=== PATIENT | female | born 1985 | race Caucasian/White ===

== ENCOUNTER 2017-08-20 12:02 | Emergency (ER) | payer MEDICAID ==
[2017-08-20] MEDS ORDERED: Alum Hydrox/Mag Hydrox/Simeth 15 ML, Lidocaine 2% 15 ML PO ONE ×2 (13:58)
[2017-08-20] MEDS ORDERED: Sucralfate 1 GM Tab PO ONE (13:58)
--- NOTE | 2017-08-20 14:00 | EDM.PDOC ---
ED HPI GENERAL MEDICAL PROBLEM - General Chief Complaint: Gastrointestinal Problem Stated Complaint: BLOOD IN VOMIT Time Seen by Provider: 08/20/17 13:59 Source of Information: Reports: Patient History Limitations: Reports: No Limitations - History of Present Illness INITIAL COMMENTS - FREE TEXT/NARRATIVE: pt arrived she has been vomiting and she has marked burning in her stomach. She has been feeling somewhat paniky today because her las emesis has some blood streaked through it. Onset: Today Duration: Hour(s): Location: Reports: Abdomen, Other ( blood astreaked in the emesis) Associated Symptoms: Reports: Nausea/Vomiting Upper Abdomen Pain Score (Numeric/FACES): 6 - Related Data Allergies Allergy/AdvReac Type Severity Reaction Status Date / Time amoxicillin Allergy Hives Verified 08/20/17 13:57 Home Meds: Home Meds Control 1 tab PO DAILY 08/20/17 [History] Cyclobenzaprine [Flexeril] 1 tab PO ASDIRECTED 08/20/17 [History] FLUoxetine [PROzac] 1 tab PO DAILY 08/20/17 [History] Omeprazole [priLOSEC OTC] 1 tab PO DAILY 08/20/17 [History] busPIRone [Buspar] 1 tab PO TID 08/20/17 [History] ED ROS GENERAL - Review of Systems Review Of Systems: See Below Constitutional: Reports: No Symptoms HEENT: Reports: No Symptoms Respiratory: Reports: No Symptoms Cardiovascular: Reports: No Symptoms Endocrine: Reports: No Symptoms GI/Abdominal: Reports: Abdominal Pain, Nausea, Vomiting, Other ( burning in the epigastric area. ) : Reports: No Symptoms Skin: Reports: No Symptoms Neurological: Reports: No Symptoms ED EXAM, GI/ABD - Physical Exam Exam: See Below Text/Narrative:: Pt arrived with severe burning in the epigastric area. She is on omeprazole. She did note a small amount of blood in the emesis . She was given a GI cocktail and she improoved markedly. Exam Limited By: No Limitations General Appearance: Alert, Anxious, Mild Distress Ears: Normal TMs Nose: Normal Inspection Throat/Mouth: Normal Inspection Head: Atraumatic Neck: Normal Inspection Respiratory/Chest: No Respiratory Distress Cardiovascular: Regular Rate, Rhythm GI/Abdominal Exam: Soft, Non-Tender (Female) Exam: Deferred Rectal (Female) Exam: Deferred Back Exam: Normal Inspection Extremities: Normal Inspection Neurological: Alert, Oriented, Normal Cognition Psychiatric: Anxious Course - Vital Signs Last Recorded V/S: Last Vital Signs Temp 36.6 C 08/20/17 13:55 Pulse 99 08/20/17 13:55 Resp 18 08/20/17 13:55 BP 114/73 08/20/17 13:55 Pulse Ox 99 08/20/17 13:55 - Orders/Labs/Meds Labs: Laboratory Tests 08/20/17 08/20/17 08/20/17 Range/Units 14:07 14:07 14:10 WBC 6.5 (4.5-11.0) K/uL RBC 4.14 (3.30-5.50) M/uL Hgb 12.4 (12.0-15.0) g/dL Hct 37.4 (36.0-48.0) % MCV 90 (80-98) fL MCH 30 (27-31) pg MCHC 33 (32-36) % Plt Count 258 (150-400) K/uL Neut % (Auto) 65 (36-66) % Lymph % (Auto) 28 (24-44) % Merrick % (Auto) 6 (2-6) % Eos % (Auto) 2 (2-4) % Baso % (Auto) 1 (0-1) % Sodium 139 L (140-148) mmol/L Potassium 3.8 (3.6-5.2) mmol/L Chloride 105 (100-108) mmol/L Carbon Dioxide 26 (21-32) mmol/L Anion Gap 11.8 (5.0-14.0) mmol/L BUN 8 (7-18) mg/dL Creatinine 0.8 (0.6-1.0) mg/dL Est Cr Clr Drug Dosing 102.78 mL/min Estimated GFR (MDRD) > 60 (>60) Glucose 105 (74-106) mg/dL Calcium 8.8 (8.5-10.1) mg/dL Total Bilirubin 0.2 (0.2-1.0) mg/dL AST 17 (15-37) U/L ALT 23 (12-78) U/L Alkaline Phosphatase 34 L (46-116) U/L Total Protein 6.1 L (6.4-8.2) g/dL Albumin 3.2 L (3.4-5.0) g/dL Globulin 2.9 (2.3-3.5) g/dL Albumin/Globulin Ratio 1.1 L (1.2-2.2) Lipase 110 (73-393) U/L Urine Color Urine Appearance Urine pH (4.5-8.0) Ur Specific [place] (1.008-1.030) Urine Protein (NEGATIVE) mg/dL Urine Glucose (UA) (NEGATIVE) mg/dL Urine Ketones (NEGATIVE) mg/dL Urine Occult Blood (NEGATIVE) Urine Nitrite (NEGATIVE) Urine Bilirubin (NEGATIVE) Urine Urobilinogen (NORMAL) mg/dL Ur Leukocyte Esterase (NEGATIVE) Urine RBC (0-5) Urine WBC (0-5) Ur Epithelial Cells Amorphous Sediment Urine Bacteria Urine Mucus Urine HCG, Qual 08/20/17 08/20/17 Range/Units 14:39 14:41 WBC (4.5-11.0) K/uL RBC (3.30-5.50) M/uL Hgb (12.0-15.0) g/dL Hct (36.0-48.0) % MCV (80-98) fL MCH (27-31) pg MCHC (32-36) % Plt Count (150-400) K/uL Neut % (Auto) (36-66) % Lymph % (Auto) (24-44) % Merrick % (Auto) (2-6) % Eos % (Auto) (2-4) % Baso % (Auto) (0-1) % Sodium (140-148) mmol/L Potassium (3.6-5.2) mmol/L Chloride (100-108) mmol/L Carbon Dioxide (21-32) mmol/L Anion Gap (5.0-14.0) mmol/L BUN (7-18) mg/dL Creatinine (0.6-1.0) mg/dL Est Cr Clr Drug Dosing mL/min Estimated GFR (MDRD) (>60) Glucose (74-106) mg/dL Calcium (8.5-10.1) mg/dL Total Bilirubin (0.2-1.0) mg/dL AST (15-37) U/L ALT (12-78) U/L Alkaline Phosphatase (46-116) U/L Total Protein (6.4-8.2) g/dL Albumin (3.4-5.0) g/dL Globulin (2.3-3.5) g/dL Albumin/Globulin Ratio (1.2-2.2) Lipase (73-393) U/L Urine Color Yellow Urine Appearance Cloudy Urine pH 7.0 (4.5-8.0) Ur Specific [place] 1.010 (1.008-1.030) Urine Protein Negative (NEGATIVE) mg/dL Urine Glucose (UA) Normal (NEGATIVE) mg/dL Urine Ketones Negative (NEGATIVE) mg/dL Urine Occult Blood Negative (NEGATIVE) Urine Nitrite Negative (NEGATIVE) Urine Bilirubin Negative (NEGATIVE) Urine Urobilinogen Normal (NORMAL) mg/dL Ur Leukocyte Esterase Negative (NEGATIVE) Urine RBC 0-5 (0-5) Urine WBC 0-5 (0-5) Ur Epithelial Cells Many Amorphous Sediment Not seen Urine Bacteria Many Urine Mucus Not seen Urine HCG, Qual Negative Meds: Medications Discontinued Medications Generic Name Dose Route Start Last Admin Trade Name Freq PRN Reason Stop Dose Admin Al Hydroxide/Mg Hydroxide 15 0 ml 08/20/17 13:58 08/20/17 14:11 ml/ Lidocaine HCl 15 ml PO 08/20/17 13:59 30 ml ONETIME ONE Administration Sucralfate 1 gm 08/20/17 13:58 08/20/17 14:11 Carafate PO 08/20/17 13:59 1 gm ONETIME ONE Administration - Re-Assessments/Exams Free Text/Narrative Re-Assessment/Exam: 08/20/17 15:51 pt was given carafate 1 gm and a gi cocktail and had good relief. She was advised that she needed to be gastroscoped. Departure - Departure Time of Disposition: 15:29 Disposition: Home, Self-Care 01 Condition: Fair Clinical Impression: Gastrointestinal irritation - Discharge Information Instructions: Gastroesophageal Reflux Disease, Adult Referrals: Latrice Nelson PA [Primary Care Provider] - Forms: ED Department Discharge Care Plan Goals: cont omeprazole, carafate 1 gm tid, rtc for a gastro ,appt with usual dr. -- vangie nelson
== END 2017-08-20 15:45 | disposition home or self-care (01) ==
LOC: JP.ED 12:02
DX: K92.89 Other specified diseases of the digestive system (principal); Z88.1 Allergy status to other antibiotic agents; Z79.899 Other long term (current) drug therapy
CPT/HCPCS: 36415; 80053; 81001; 81025; 83690; 85025; 99284; A9270-GY

== ENCOUNTER 2017-08-26 07:50 | Day surgery (SDC) | payer MEDICAID ==
[~2017-08-26 07:50] MED LIST: Midazolam 1 MG/ML 2 ML SDV ONE; Propofol 200 MG/20 ML SDV ONE; fentaNYL 100 MCG/2 ML SDV ONE
[2017-08-26] MEDS ORDERED: Dextrose 5%-Lactated Ringers 1,000 ML IV SCH (09:00)
[2017-08-26] MEDS ORDERED: Propofol 200 MG/20 ML SDV ONE (09:28)
[2017-08-26] MEDS ORDERED: Glycopyrrolate 0.2 MG/ML 2 ML SYRINGE IVPUSH ONE (09:30)
[2017-08-26] MEDS ORDERED: Pantoprazole 40 MG Vial IVPUSH ONE (09:43)
--- NOTE | 2017-09-02 13:14 | OR ---
DATE OF PROCEDURE: 08/26/2017 PREOPERATIVE DIAGNOSIS: Epigastric pain with recent hematemesis. POSTOPERATIVE DIAGNOSIS: Large gastric bezoar associated with mild antral gastritis. OPERATIVE PROCEDURE: Esophagogastroduodenoscopy with antral biopsies for CLOtest. ANESTHESIA: IV sedation. INDICATION FOR PROCEDURE: This is a 32-year-old presenting after emergency room visit for an episode of hematemesis. The patient reports that she has had heartburn more or less for 10 years, but presently is not on any medications for the GI tract. The plan is to proceed with upper GI endoscopy with biopsies as indicated. Potential risks including bleeding and perforation were discussed, and the patient wishes to proceed. DESCRIPTION OF PROCEDURE: The patient was taken to the operating room and placed in a left lateral decubitus position. IV sedation was administered, after which the upper GI endoscope was passed orally through the length of the esophagus and into the stomach with retroflexion view of the fundus, and thereafter through the pyloric channel and into the junction of the third and fourth portions of the duodenum. Findings included normal hypopharynx, larynx, upper esophageal sphincter, and esophageal body. No significant hiatal hernia was present and likewise there was no gross inflammation or upward extension of the columnar mucosa at the esophagogastric junction. The striking finding was a very large bezoar located within the stomach. This contained a variety of old vegetable-type matter. This was associated with some redness in the distal body as well as the antrum. No erosions or ulcers were seen at this time, but certainly this could result in some problems with hematemesis. The pyloric channel was widely open, i.e. there was no gastric outlet obstruction and the visualized portions of the duodenum were unremarkable. At this point, biopsies were obtained from the antrum and sent for CLOtest for H. pylori. Minimal bleeding from the biopsy sites was seen and the procedure then concluded. Plan at this point will be to start the patient on Reglan 10 mg q.i.d. to be given one-half hour a.c. and then at bedtime, also begin Protonix 40 mg daily and give her Protonix IV in the recovery room. We will see the patient back on 09/04/2017 to see how we are doing clinically and plan another procedure with a repeat upper endoscopy in 6 weeks to see to what extent she is clearing the bezoar. The cause of the gastroparesis remains obviously a question as the patient does not have diabetes, history of alcoholism is notable, there were no varices or suggestion of portal hypertension during the exam. Phong Shea MD /[id number]
== END 2017-08-26 11:12 | disposition home or self-care (01) ==
LOC: JP.SDS 07:50
PROVIDERS: ATTEND Surgery
DX: K29.50 Unspecified chronic gastritis without bleeding (principal); T18.2XXA Foreign body in stomach, initial encounter; K21.9 Gastro-esophageal reflux disease without esophagitis; X58.XXXA Exposure to other specified factors, initial encounter; Z88.1 Allergy status to other antibiotic agents
CPT/HCPCS: 43239; 81025; 87081; C9113; J2250; J2704; J3010; J7042

== ENCOUNTER 2017-09-30 07:21 | Day surgery (SDC) | payer MEDICAID ==
[2017-09-30] MEDS ORDERED: Dextrose 5%-Lactated Ringers 1,000 ML IV SCH (07:30)
[2017-09-30] MEDS ORDERED: fentaNYL 100 MCG/2 ML SDV ONE (07:40)
[2017-09-30] MEDS ORDERED: Propofol 200 MG/20 ML SDV ONE (07:40)
[2017-09-30] MEDS ORDERED: Midazolam 1 MG/ML 2 ML SDV ONE (07:41)
[2017-09-30] MEDS ORDERED: Glycopyrrolate 0.2 MG/ML 2 ML SDV IVPUSH ONE (08:00)
--- NOTE | 2017-10-05 21:15 | OR ---
DATE OF PROCEDURE: 09/30/2017 PREOPERATIVE DIAGNOSIS: Upper abdominal pain associated with a gastric bezoar. POSTOPERATIVE DIAGNOSES: 1. Gastric bezoar, now absent. 2. Moderate antral gastritis and duodenitis. PROCEDURE: Esophagogastroduodenoscopy with antral biopsies for CLOtest. ANESTHESIA: IV sedation. INDICATION FOR PROCEDURE: This is a 32-year-old presenting with some ongoing upper abdominal pain. She presently is to undergo a followup endoscopy. She was noted to have a large gastric bezoar previously and was placed on some IV Reglan along with anti-bezoar diet and proceed with an upper GI endoscopy for followup. She does continue to have some epigastric discomfort and nausea. Potential risks of the procedure including bleeding and perforation were discussed, and the patient wishes to proceed. DETAILS OF PROCEDURE: The patient was taken to the operating room and placed in a left lateral decubitus position. IV sedation was administered, after which the upper GI endoscope was passed orally through the length of the esophagus and into the stomach with retroflexion view of the fundus and after that into the pyloric channel and proximal duodenum. Findings included normal hypopharynx, larynx, upper esophageal sphincter, and esophageal body. At the EG junction, no significant inflammation was noted within the stomach. The bezoar which had been quite large previously was not entirely gone. There was a fair amount of bile and some streaks of gastritis within the antrum and some patchy red areas within the duodenal bulb consistent with some mild gastritis and duodenitis. No erosions or ulcers were seen. At this point, biopsies were obtained from the antrum and sent for CLOtest for H. pylori and minimal bleeding from the biopsy sites was seen and the procedure was then concluded. The patient continues to have abdominal discomfort as well as a sense of postprandial epigastric bloating and discomfort. We will have to further workup of this issue. I think we will obtain a nuclear medicine gastric emptying study, this will be scheduled for next week and will see her back after that to see if there is any additional treatment that might be warranted. Phong Shea MD /[id number]
== END 2017-09-30 10:42 | disposition home or self-care (01) ==
LOC: JP.SDS 07:21
PROVIDERS: ATTEND Surgery
DX: K29.70 Gastritis, unspecified, without bleeding (principal); K29.80 Duodenitis without bleeding; Z88.1 Allergy status to other antibiotic agents
CPT/HCPCS: 81025; 87081; J2250; J2704; J3010; J3490; J7042

== ENCOUNTER 2018-11-17 19:28 | Emergency (ER) | payer MEDICAID ==
[2018-11-17] MEDS ORDERED: Ketorolac 60 MG/2 ML SDV IM ONE (20:05)
--- NOTE | 2018-11-17 20:06 | EDM.PDOC ---
ED HPI GENERAL MEDICAL PROBLEM - General Chief Complaint: Back Pain or Injury Stated Complaint: back pain Time Seen by Provider: 11/17/18 20:00 Source of Information: Reports: Patient, Family History Limitations: Reports: No Limitations - History of Present Illness INITIAL COMMENTS - FREE TEXT/NARRATIVE: 34-year-old female with chronic low back pain, has an increase in pain on the left lower back over the past 3 days. After a 4 hour car ride yesterday, she could not get out of the car, today she could barely get out of bed. It's intense pain in the left lower lumbar area radiating down the leg and causing numbness in her foot. She has had physical therapy for this in the past which has not helped. She does have periods of improvement where it doesn't bother her and in fact does have some pain 3 days. No incontinence. This current flareup is about as bad as it is gotten. Onset: Gradual Duration: Day(s): (3-4 days) Location: Reports: Back Severity: Moderate Worsens with: Reports: Movement Associated Symptoms: Reports: Other (Some paresthesia and numbness in the left lower extremity, especially the lateral foot and lower leg) left lower back/ leg Pain Score (Numeric/FACES): 10 - Related Data Allergies Allergy/AdvReac Type Severity Reaction Status Date / Time azithromycin Allergy Hives Verified 11/17/18 19:48 Home Meds: Home Meds Control 1 tab PO DAILY 08/20/17 [History] Cyclobenzaprine [Flexeril] 1 tab PO ASDIRECTED 08/20/17 [History] FLUoxetine [PROzac] 40 mg PO DAILY 08/20/17 [History] Omeprazole [priLOSEC OTC] 1 tab PO DAILY 08/20/17 [History] busPIRone [Buspar] 30 mg PO DAILY 08/20/17 [History] Gabapentin [Neurontin] 300 mg PO BID PRN 09/26/17 [History] DULoxetine HCl [Duloxetine HCl] 1 tab PO DAILY 11/17/18 [History] Past Medical History HEENT History: Reports: Hard of Hearing, Other (See Below) Other HEENT History: eustachian tube dysfunction Gastrointestinal History: Reports: GERD, Other (See Below) Other Gastrointestinal History: bezoar 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: Musculoskeletal History: Reports: Fracture Neurological History: Reports: Concussion, Migraines Psychiatric History: Reports: Addiction, Anxiety, Depression, PTSD - Infectious Disease History Infectious Disease History: Reports: Chicken Pox - Past Surgical History Head Surgeries/Procedures: Reports: None HEENT Surgical History: Reports: None GI Surgical History: Reports: EGD Female Surgical History: Reports: Section Neurological Surgical History: Reports: None Musculoskeletal Surgical History: Reports: None Social & Family History - Family History Family Medical History: Noncontributory - Tobacco Use Smoking Status *Q: Never Smoker - Caffeine Use Caffeine Use: Reports: Coffee, Soda - Recreational Drug Use Recreational Drug Use: No ED ROS GENERAL - Review of Systems Review Of Systems: See Below Constitutional: Denies: Fever, Chills Respiratory: Denies: Shortness of Breath Cardiovascular: Denies: Chest Pain GI/Abdominal: Denies: Nausea, Vomiting : Reports: No Symptoms. Denies: Incontinence Skin: Denies: Bruising, Rash ED EXAM,LOWER BACK PAIN/INJURY - Physical Exam Exam: See Below Exam Limited By: No Limitations General Appearance: Alert, Mild Distress (Significant distress with any type of movement such as attempting to sit up from a lying position) Respiratory/Chest: No Respiratory Distress, Lungs Clear Extremities: Normal Inspection Neurological: Alert, Oriented x 3, Straight Leg Raise (L) (When raising the left leg she had increased neuropathic type pain, marked increased low back pain causing her to become tearful) Course - Vital Signs Last Recorded V/S: Last Vital Signs Temp 97.8 F 11/17/18 19:52 Pulse 107 H 11/17/18 19:52 Resp 18 11/17/18 19:52 BP 111/73 11/17/18 19:52 Pulse Ox 98 11/17/18 19:52 - Orders/Labs/Meds Meds: Medications Discontinued Medications Generic Name Dose Route Start Last Admin Trade Name Freq PRN Reason Stop Dose Admin Ketorolac Tromethamine 60 mg 11/17/18 20:05 11/17/18 20:12 Toradol IM 11/17/18 20:06 60 mg ONETIME ONE Administration - Re-Assessments/Exams Free Text/Narrative Re-Assessment/Exam: 11/17/18 20:41 60 mg of IM Toradol was given, 30 minutes later the patient was reexamined. Slight improvement but still significant discomfort. She'll be placed on a five- day Medrol dosepak and given 10 hydrocodone to use sparingly for extra pain control, but I recommended she talk to her primary provider about a possible MRI in the near future. Increase activity as tolerated. Departure - Departure Time of Disposition: 20:49 Disposition: Home, Self-Care 01 Clinical Impression: Lumbar back pain with radiculopathy affecting left lower extremity - Discharge Information Instructions: Radicular Pain Referrals: Latrice Guajardo PA [Primary Care Provider] - Forms: ED Department Discharge Care Plan Goals: Take Medrol Dosepak as prescribed, continue with anti-inflammatories and increase activity as tolerated. Use hydrocodone for breakthrough pain especially when trying to rest. Recheck with your primary provider later this week to discuss any further evaluation, treatment or possible MRI or pain referral.
== END 2018-11-17 20:49 | disposition home or self-care (01) ==
LOC: JP.ED 19:28
DX: M54.16 Radiculopathy, lumbar region (principal); K21.9 Gastro-esophageal reflux disease without esophagitis; F41.9 Anxiety disorder, unspecified; F32.9 Major depressive disorder, single episode, unspecified; Z88.1 Allergy status to other antibiotic agents; Z79.899 Other long term (current) drug therapy; Z79.3 Long term (current) use of hormonal contraceptives
CPT/HCPCS: 96372; 99283; J1885

== ENCOUNTER 2019-01-17 16:28 | Emergency (ER) | payer MEDICAID, OTHER ==
[2019-01-17] MEDS ORDERED: Lidocaine 1% with EPINEPHrine 1:100,000 50 ML MDV SUBCUT STA (17:27)
--- NOTE | 2019-01-17 17:29 | EDM.PDOC ---
ED HPI GENERAL MEDICAL PROBLEM - General Chief Complaint: Allergic Reaction Stated Complaint: REACTING TO BEE STINGS Time Seen by Provider: 01/17/19 16:53 Source of Information: Reports: Patient History Limitations: Reports: No Limitations - History of Present Illness INITIAL COMMENTS - FREE TEXT/NARRATIVE: stung to the left upper arm multiple times; she took her friends epi pen; became weak in the legs and fell, hit her left upper eye area resulting in lac. Denies LOC. She states she feels fine now; had felt mild SOB. Onset: Today Location: Reports: Face, Other (left upper eye) Quality: Reports: Ache Improves with: Reports: None Worsens with: Reports: None Associated Symptoms: Reports: Other (hives to left arm, lac to left upper eye area) - Related Data Allergies Allergy/AdvReac Type Severity Reaction Status Date / Time azithromycin Allergy Hives Verified 01/17/19 16:59 Home Meds: Home Meds Control 1 tab PO DAILY 08/20/17 [History] Cyclobenzaprine [Flexeril] 1 tab PO ASDIRECTED 08/20/17 [History] FLUoxetine [PROzac] 40 mg PO DAILY 08/20/17 [History] Omeprazole [priLOSEC OTC] 1 tab PO DAILY 08/20/17 [History] busPIRone [Buspar] 30 mg PO DAILY 08/20/17 [History] Gabapentin [Neurontin] 300 mg PO BID PRN 09/26/17 [History] DULoxetine HCl [Duloxetine HCl] 1 tab PO DAILY 11/17/18 [History] Past Medical History HEENT History: Reports: Hard of Hearing, Other (See Below) Other HEENT History: eustachian tube dysfunction Gastrointestinal History: Reports: GERD, Other (See Below) Other Gastrointestinal History: bezoar 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: Musculoskeletal History: Reports: Fracture Neurological History: Reports: Concussion, Migraines Psychiatric History: Reports: Addiction, Anxiety, Depression, PTSD - Infectious Disease History Infectious Disease History: Reports: Chicken Pox - Past Surgical History Head Surgeries/Procedures: Reports: None HEENT Surgical History: Reports: None GI Surgical History: Reports: EGD Female Surgical History: Reports: Section Neurological Surgical History: Reports: None Musculoskeletal Surgical History: Reports: None Social & Family History - Family History Family Medical History: Noncontributory - Tobacco Use Smoking Status *Q: Never Smoker - Caffeine Use Caffeine Use: Reports: Coffee, Soda ED ROS ALLERGIC REACTION - Review of Systems Review Of Systems: See Below Constitutional: Reports: No Symptoms HEENT: Reports: No Symptoms Respiratory: Reports: Other (felt sob after bee sting however this resolved) Cardiovascular: Reports: No Symptoms GI/Abdominal: Reports: No Symptoms : Reports: No Symptoms Musculoskeletal: Reports: No Symptoms Skin: Reports: Other (hives to left upper arm) Neurological: Reports: No Symptoms Psychiatric: Reports: No Symptoms ED EXAM GENERAL NO PERIP PULSE - Physical Exam Exam: See Below Exam Limited By: No Limitations General Appearance: Alert, WD/WN, No Apparent Distress Eye Exam: Bilateral Eye: PERRL Nose: Normal Inspection, Normal Mucosa Head: Normocephalic, Other (laceration to left upper eye, 0.5 cm, linear; not bleeding.) Neck: Normal Inspection, Supple, Full Range of Motion Respiratory/Chest: No Respiratory Distress, Lungs Clear, Normal Breath Sounds Cardiovascular: Regular Rate, Rhythm Back Exam: Full Range of Motion Neurological: Alert, Oriented, CN II-XII Intact (laceration to the left upper eye, 0.5 cm, linear- large hive to the left upper arm), Normal Gait Skin Exam: Warm, Dry, Other (one large hive to the left upper arm) ED Add Procedures - Additional/Other Procedure(s) Procedure(s) (Free Text): Wound was cleansed with NS; explored for FB, anesthetized with lido with epi; 2 cc's. Sterile techinique, 4-0 ethilon sutures placed, total of 2. Bacitracin applied with sterile dressing; tolerated well; no complications. Course - Orders/Labs/Meds Meds: Medications Discontinued Medications Generic Name Dose Route Start Last Admin Trade Name Juanitoq PRN Reason Stop Dose Admin Bacitracin 1 dose 01/17/19 17:47 01/17/19 17:53 Bacitracin Oint 1 Gm TOP 01/17/19 17:48 1 dose ONETIME ONE Administration Lidocaine/Epinephrine 3 ml 01/17/19 17:27 01/17/19 17:52 Xylocaine 1% With Epinephrine 1:100,000 SUBCUT 01/17/19 17:28 3 ml NOW STA Administration Departure - Departure Time of Disposition: 18:00 Disposition: Home, Self-Care 01 Condition: Good Clinical Impression: Bee sting reaction, Laceration - Discharge Information *PRESCRIPTION DRUG MONITORING PROGRAM REVIEWED*: Not Applicable *COPY OF PRESCRIPTION DRUG MONITORING REPORT IN PATIENT ALONDRA: Not Applicable Instructions: Anaphylactic Reaction, Adult Referrals: Latrice Guajardo PA [Primary Care Provider] - Forms: ED Department Discharge Additional Instructions: keep wound clean and dry Ice to affected area Benadryl for welts to arm Push fluids Stitches out in 7 days. - Problem List & Annotations (1) Laceration SNOMED Code(s): 716143660 Code(s): QJX9485 - Status: Acute Priority: Low (2) Bee sting reaction SNOMED Code(s): 716958522, 819713418 Code(s): T63.441A - TOXIC EFFECT OF [place], ACCIDENTAL, INIT Status : Acute Priority: Low Qualifiers: Encounter type: initial encounter - Problem List Review Problem List Initiated/Reviewed/Updated: No
[2019-01-17] MEDS ORDERED: Bacitracin Oint 1 GM U/D Packet TOP ONE (17:47)
== END 2019-01-17 18:04 | disposition home or self-care (01) ==
LOC: JP.ED 16:28
DX: T63.441A Toxic effect of venom of bees, accidental (unintentional), initial encounter (principal); S01.112A Laceration without foreign body of left eyelid and periocular area, initial encounter; K21.9 Gastro-esophageal reflux disease without esophagitis; F41.9 Anxiety disorder, unspecified; F32.9 Major depressive disorder, single episode, unspecified; Z88.1 Allergy status to other antibiotic agents; Z79.899 Other long term (current) drug therapy; W18.39XA Other fall on same level, initial encounter
CPT/HCPCS: 12011; 99282

== ENCOUNTER 2021-06-03 11:34 | Emergency (ER) | payer MEDICAID ==
[2021-06-03] MEDS ORDERED: Sodium Chloride 0.9% 10 ML Syringe FLUSH PRN (12:00)
[2021-06-03] MEDS ORDERED: Sodium Chloride 0.9% 80 ML IV SCH (12:15)
[2021-06-03] MEDS ORDERED: Iopamidol 612 MG/ML 100 ML Bottle IV SCH (12:15)
--- NOTE | 2021-06-03 12:58 | EDM.PDOC ---
ED HPI GENERAL MEDICAL PROBLEM - General Chief Complaint: Skin Complaint Stated Complaint: HEMATOMA IN LEFT EYE Time Seen by Provider: 06/03/21 11:54 Source of Information: Reports: Patient History Limitations: Reports: No Limitations - History of Present Illness INITIAL COMMENTS - FREE TEXT/NARRATIVE: Carissa 6-year-old female presenting to the ED for evaluation of worsening left periorbital cellulitis. The patient first injured the area while walking [place] with [place]. She apparently was looking down to make sure she did not trip on her feet and struck her left eyebrow with a branch causing a puncture wound. She was seen in the clinic yesterday because of pain and swelling and was started on Augmentin. Has taken 3 doses of the Augmentin but comes in today because of worsening swelling and pain. She has been taking naproxen for her pain. She denies any fever or chills, vision changes, diplopia or blurred vision. She has had no purulent discharge from the wound. The area around the left thigh is red and swollen, warm, and tender to touch. Left Face/Facial Pain Score (Numeric/FACES): 6 - Related Data Allergies Allergy/AdvReac Type Severity Reaction Status Date / Time azithromycin Allergy Hives Verified 06/03/21 12:00 Home Meds: Home Meds Control 1 tab PO DAILY 08/20/17 [History] Cyclobenzaprine [Flexeril] 1 tab PO ASDIRECTED 08/20/17 [History] FLUoxetine [PROzac] 40 mg PO DAILY 08/20/17 [History] Omeprazole [priLOSEC OTC] 1 tab PO DAILY 08/20/17 [History] busPIRone [Buspar] 30 mg PO DAILY 08/20/17 [History] Gabapentin [Neurontin] 300 mg PO BID PRN 09/26/17 [History] DULoxetine HCl [Duloxetine HCl] 1 tab PO DAILY 11/17/18 [History] Amoxicillin/Potassium Clav [Amox-Clav 875-125 mg Tablet] 1 cap PO BID 06/03/21 [History] Past Medical History HEENT History: Reports: Hard of Hearing, Other (See Below) Other HEENT History: eustachian tube dysfunction Gastrointestinal History: Reports: GERD, Other (See Below) Other Gastrointestinal History: [employer] History: Reports: Musculoskeletal History: Reports: Fracture Neurological History: Reports: Concussion, Migraines Psychiatric History: Reports: Addiction, Anxiety, Depression, PTSD - Infectious Disease History Infectious Disease History: Reports: Chicken Pox - Past Surgical History Head Surgeries/Procedures: Reports: None HEENT Surgical History: Reports: None GI Surgical History: Reports: EGD Female Surgical History: Reports: Section Neurological Surgical History: Reports: None Musculoskeletal Surgical History: Reports: None Social & Family History - Family History Family Medical History: No Pertinent Family History - Tobacco Use Tobacco Use Status *Q: Never Tobacco User - Caffeine Use Caffeine Use: Reports: Coffee - Recreational Drug Use Recreational Drug Use: Yes Recreational Drug Type: Reports: Marijuana/Hashish ED ROS GENERAL - Review of Systems Review Of Systems: See Below Constitutional: Reports: No Symptoms HEENT: Reports: Other (Left periorbital swelling, tenderness, and redness). Denies: Vision Change Respiratory: Reports: No Symptoms Cardiovascular: Reports: No Symptoms Endocrine: Reports: No Symptoms GI/Abdominal: Reports: No Symptoms Musculoskeletal: Reports: No Symptoms Skin: Reports: Erythema, Wound (Left eyebrow puncture wound) Neurological: Reports: No Symptoms ED EXAM, SKIN/RASH Exam: See Below Exam Limited By: No Limitations General Appearance: Alert, No Apparent Distress, Anxious Eye Exam: Left Eye: Periorbital Changes (Redness, swelling, tenderness and increased heat.), Bilateral Eye: EOMI, PERRL Nose: Normal Inspection, Normal Mucosa Throat/Mouth: Normal Inspection, Normal Lips Head: Normocephalic, Facial Swelling (Left periorbital swelling, redness, and tenderness), Facial Tenderness (Periorbital tenderness) Neck: Normal Inspection Respiratory/Chest: No Respiratory Distress, Lungs Clear, Normal Breath Sounds Skin: Warm, Erythema, Increased Warmth Location, Skin: Face (Around the left eye) Associated features: Warmth, Tenderness, Swelling Course - Vital Signs Last Recorded V/S: Last Vital Signs Temp 36.7 C 06/03/21 11:59 Pulse 96 06/03/21 11:59 Resp 16 06/03/21 11:59 BP 108/60 06/03/21 11:59 Pulse Ox 97 06/03/21 11:59 - Orders/Labs/Meds Orders: Active Orders 24 hr Category Date Time Status Max Facial Sinus w Cont [CT] Stat Exams 06/03/21 12:00 Taken Iopamidol [Isovue-300 (61%)] Med 06/03/21 12:15 Active 100 ml IV . DIRECTED Sodium Chloride 0.9% [Normal Saline] 80 ml Med 06/03/21 12:15 Active IV ASDIRECTED Sodium Chloride 0.9% [Saline Flush] Med 06/03/21 12:00 Active 10 ml FLUSH ASDIRECTED PRN Saline Lock Insert [OM.PC] Routine Oth 06/03/21 12:00 Ordered Medication Orders Sodium Chloride (Normal Saline) 80 mls @ 3 mls/sec IV ASDIRECTED TOR Last Admin: 06/03/21 12:30 Dose: 3 mls/sec Documented by: MYKLALY Iopamidol (Iopamidol 612 Mg/Ml 100 Ml Bottle) 100 ml IV . DIRECTED [facility] Last Admin: 06/03/21 12:30 Dose: 100 ml Documented by: REYNALDO Sodium Chloride (Sodium Chloride 0.9% 10 Ml Syringe) 10 ml FLUSH ASDIRECTED PRN PRN Reason: Keep Vein Open Last Admin: 06/03/21 12:12 Dose: 10 ml Documented by: PREILOR Labs: Laboratory Tests 06/03/21 06/03/21 Range/Units 12:05 12:05 WBC 5.6 (4.5-11.0) K/uL RBC 3.98 (3.30-5.50) M/uL Hgb 11.8 L (12.0-15.0) g/dL Hct 35.3 L (36.0-48.0) % MCV 89 (80-98) fL MCH 30 (27-31) pg MCHC 33 (32-36) % Plt Count 232 (150-400) K/uL Neut % (Auto) 48.4 (36-66) % Lymph % (Auto) 41.2 (24-44) % [place] % (Auto) 7.6 H (2-6) % Eos % (Auto) 2.1 (2-4) % Baso % (Auto) 0.7 (0-1) % C-Reactive Protein 5.49 H (0.0-0.3) mg/dL Meds: Medications Generic Name Dose Route Start Last Admin Trade Name Freq PRN Reason Stop Dose Admin Sodium Chloride 80 mls @ 3 mls/sec 06/03/21 12:15 06/03/21 12:30 Normal Saline IV 3 mls/sec ASDIRECTED TOR Administration Iopamidol 100 ml 06/03/21 12:15 06/03/21 12:30 Iopamidol 612 Mg/Ml 100 Ml Bottle IV 100 ml . DIRECTED TOR Administration Sodium Chloride 10 ml 06/03/21 12:00 06/03/21 12:12 Sodium Chloride 0.9% 10 Ml Syringe FLUSH 10 ml ASDIRECTED PRN Administration Keep Vein Open Discontinued Medications Generic Name Dose Route Start Last Admin Trade Name Arabella PRN Reason Stop Dose Admin Naproxen 250 mg 06/03/21 13:00 Naproxen 250 Mg Tab PO 06/03/21 13:01 ONETIME STA - Radiology Interpretation Free Text/Narrative:: I reviewed the CT of the facial and sinuses with contrast. There is significant soft tissue swelling around the left eye that appears to be a preseptal cellulitis. Final report to follow. - Re-Assessments/Exams Free Text/Narrative Re-Assessment/Exam: 06/03/21 13:06 reviewed the patient's labs showing a normal CBC but increase in her C-reactive protein at 5.49. The CT of the face and sinuses shows significant preseptal cellulitis in the left periorbital space. As this is due to a puncture wound, the patient was only placed on Augmentin and probably needs coverage for MRSA so we will add Bactrim double strength 1 tablet twice daily to the Augmentin. I had like her to follow-up with her primary provider on Saturday or Saturday for recheck to make sure that she is getting better. Indications to return to the ED were discussed and she was discharged in satisfactory condition. Departure - Departure Time of Disposition: 13:09 Disposition: Home, Self-Care 01 Clinical Impression: Periorbital cellulitis of left eye - Discharge Information Instructions: Preseptal Cellulitis, Adult Referrals: PCP,None [Primary Care Provider] - Forms: ED Department Discharge Care Plan Goals: Your work-up today shows that you have what is called a preseptal periorbital cellulitis which is an infection in front of the eye but not involving the orbit of the eye or the soft tissue behind the eye. The provider put you on one of the right medications for the infection but because this is a puncture wound there is also a chance that you have MRSA or a resistant staph aureus involved in the infection so I am adding a second antibiotic to the one that you take called Bactrim double strength which she will need to take twice daily for the next 10 days. I would like you to follow-up with your primary provider on Saturday or Saturday this week to make sure that this is getting better. This point I do not think that we need to initiate IV antibiotics, however, if it continues to worsen we may have to schedule you for twice daily IV antibiotics to come into the ER to receive. Sepsis Event Note (ED) - Evaluation Sepsis Screening Result: No Definite Risk - Focused Exam Vital Signs: Vital Signs Temp Pulse Resp BP Pulse Ox 06/03/21 11:59 36.7 C 96 16 108/60 97 06/03/21 11:58 36.7 C 96 16 108/60 97 - Problem List & Annotations (1) Periorbital cellulitis of left eye SNOMED Code(s): 983723330 Code(s): L03.213 - PERIORBITAL CELLULITIS Status: Acute Priority: Medium Current Visit: Yes - Problem List Review Problem List Initiated/Reviewed/Updated: Yes - My Orders Last 24 Hours: My Active Orders 06/03/21 12:00 Max Facial Sinus w Cont [CT] Stat Sodium Chloride 0.9% [Saline Flush] 10 ml FLUSH ASDIRECTED PRN Saline Lock Insert [OM.PC] Routine 06/03/21 12:15 Iopamidol [Isovue-300 (61%)] 100 ml IV . DIRECTED Sodium Chloride 0.9% [Normal Saline] 80 ml IV ASDIRECTED - Assessment/Plan Last 24 Hours: My Active Orders 06/03/21 12:00 Max Facial Sinus w Cont [CT] Stat Sodium Chloride 0.9% [Saline Flush] 10 ml FLUSH ASDIRECTED PRN Saline Lock Insert [OM.PC] Routine 06/03/21 12:15 Iopamidol [Isovue-300 (61%)] 100 ml IV . DIRECTED Sodium Chloride 0.9% [Normal Saline] 80 ml IV ASDIRECTED
[2021-06-03] MEDS ORDERED: Naproxen 250 MG Tab PO STA (13:00)
[2021-06-03] MEDS ORDERED: Ketorolac 10 MG Tab PO ONE (13:05)
--- NOTE | 2021-06-03 13:22 | CRLCT ---
For Patients: As a result of the Century Cures Act, medical imaging exams and procedure reports are released immediately into your electronic medical record. You may view this report before your referring provider. If you have questions, please contact your health care provider. Indication: Left periorbital swelling/infection Technique: CT of the face was performed with the use of 100 cc Isovue 300 intravenous contrast. Comparison: None relevant available. Findings: Left periorbital subcutaneous and cutaneous swelling and fat infiltration. There is no discrete fluid collection identified to suggest abscess. The left orbit is intact. The globe is preserved without evidence of rupture. The retrobulbar fat is preserved without fatty infiltration. Likely gland appear symmetric. The extraocular muscles appear preserved. Visualized intracranial compartments appear grossly intact. Paranasal sinuses are clear. The visualized upper aerodigestive tract appears unremarkable as visualized. Impression: 1. Left periorbital/preseptal cellulitis. No discrete fluid collection to suggest drainable abscess. 2. No evidence to suggest postseptal involvement of the left orbit. Please note that all CT scans at this facility use dose modulation, iterative reconstruction, and/or weight-based dosing when appropriate to reduce radiation dose to as low as reasonably achievable. Dictated by Moreno Lanza MD @ 06/03/2021 1:20:33 PM (Electronically Signed)
== END 2021-06-03 13:20 | disposition home or self-care (01) ==
LOC: JP.ED 11:34
DX: L03.213 Periorbital cellulitis (principal); K21.9 Gastro-esophageal reflux disease without esophagitis; Z79.899 Other long term (current) drug therapy; Z88.1 Allergy status to other antibiotic agents
CPT/HCPCS: 36415; 70487; 85025; 86140; 99284; A9270; Q9967

== ENCOUNTER 2023-07-01 16:11 | Emergency (ER) | payer MEDICAID ==
[2023-07-01] MEDS ORDERED: Ketorolac 30 MG/ML SDV IM ONE (17:23)
[2023-07-01] MEDS ORDERED: Baclofen 10 MG Tab PO ONE (17:24)
[2023-07-01] MEDS ORDERED: Ondansetron 4 MG Tab.DIS PO ONE (18:08)
[2023-07-01 18:25] LABS: APPEARANCE,URINE SLIGHTLY CLOUDY (CLEAR); BILIRUBIN,URINE NEGATIVE (NEGATIVE); COLOR,URINE YELLOW (YELLOW); GLUCOSE,URINE NEGATIVE (NEGATIVE); KETONES,URINE NEGATIVE (NEGATIVE); LEUKOCYTE ESTERASE,URINE NEGATIVE (NEGATIVE); NITRITE,URINE NEGATIVE (NEGATIVE); OCCULT BLOOD,URINE NEGATIVE (NEGATIVE); PROTEIN,URINE NEGATIVE (NEGATIVE); UROBILINOGEN,URINE 0.2 EU/dL (0.2-1.0)
[2023-07-01 18:30] LABS: AMPHETAMINES SCREEN, URINE NEGATIVE (NEGATIVE); METHAMPHETAMINES SCREEN, URINE NEGATIVE (NEGATIVE)
[2023-07-01 18:31] LABS: AMORPHOUS SEDIMENT,URINE NOT SEEN; BACTERIA,URINE MANY; EPITHELIAL CELLS,URINE FEW; MUCUS,URINE NOT SEEN; RBC,URINE 0-5 (0-5); WBC,URINE 0-5 (0-5)
[2023-07-01 18:31] LABS: BARBITURATE SCREEN,URINE NEGATIVE (NEGATIVE); BENZODIAZEPINES SCREEN,URINE PRESUMPTIVE POSITIVE (NEGATIVE); METHADONE SCREEN, URINE NEGATIVE (NEGATIVE); OXYCODONE SCREEN,URINE NEGATIVE (NEGATIVE); PROPOXYPHENE SCREEN,URINE NEGATIVE (NEGATIVE); THC SCREEN,URINE 50 NG/ML PRESUMPTIVE POSITIVE (NEGATIVE)
== END 2023-07-01 19:00 | disposition home or self-care (01) ==
LOC: JP.ED 16:11
DX: M54.50 Low back pain, unspecified (principal); K21.9 Gastro-esophageal reflux disease without esophagitis; Z79.899 Other long term (current) drug therapy; Z91.030 Bee allergy status; Z91.011 Allergy to milk products; W01.0XXA Fall on same level from slipping, tripping and stumbling without subsequent striking against object, initial encounter
CPT/HCPCS: 72110; 73610; 80305; 81001; 96372; 99283; A9270; J1885